=== PATIENT | female | born 1980 | race American Indian/Alaskan Native ===

== ENCOUNTER 2017-07-25 10:00 | Inpatient (IN) | payer OTHER ==
[2017-07-26] MEDS ORDERED: SUBLIMAZE IV SCH (11:02)
--- NOTE | 2017-07-26 11:02 | Anesthesia Consultation ---
Anesthesia Consult and Med Hx Date of service: 07/26/17 - Airway Anesthetic Teeth Evaluation: Good, Crowns (left lower molar) ROM Head & Neck: Adequate Mental/Hyoid Distance: Adequate Mallampati Class: Class I Intubation Access Assessment: Probably Good - Pulmonary Exam CTA: Yes - Cardiac Exam Cardiac Exam: RRR - Pre-Operative Health Status ASA Pre-Surgery Classification: ASA1 Proposed Anesthetic Plan: General - Pulmonary Hx Smoking: No - Cardiovascular System Hx Hypertension: No - Central Nervous System Hx Psychiatric Problems: No - Hematic Hx Anemia: Yes - Other Systems Hx Alcohol Use: Yes (occas) Hx Substance Use: No Hx Cancer: No - Additional Comments Anesthesia Medical History Comments: Patient indicates that she has a tendency towards nausea. We discussed the possibility of a TAP block.
[2017-07-26 11:03] LABS: Hematocrit 27.6 % (30.3-42.9); Hemoglobin 8.3 gm/dl (10.1-14.3); Mean Corpuscular HGB Conc 30 % (30-34); Platelet Count 283 K/mm3 (140-440); Red Blood Count 4.39 M/mm3 (3.65-5.03)
[2017-07-26 11:05] LABS: Mean Corpuscular Hemoglobin 19 pg (28-32); Mean Corpuscular Volume 63 fl (79-97); Red Cell Distribution Width 23.2 % (13.2-15.2)
[2017-07-26 11:07] LABS: BUN/Creatinine Ratio 28; Blood Urea Nitrogen 14 mg/dL (7-17); Calcium 8.6 mg/dL (8.4-10.2); Hemolysis Index 3
[2017-07-26] MEDS ORDERED: XYLOCAINE 1% 20 mL INFILTRATI NR (11:15)
[2017-07-26] MEDS ORDERED: PEPCID IV NR (12:00)
[2017-07-26] MEDS ORDERED: NACL P/F VIAL (10 ML) INFILTRATI NR (12:00)
[2017-07-26] MEDS ORDERED: TRANSDERM-SCOP TD NR (12:00)
[2017-07-26] MEDS ORDERED: MARCAINE 0.5% INFILTRATI NR (12:00)
--- NOTE | 2017-07-26 17:17 | History and Physical Report ---
History of Present Illness Date of examination: 07/26/17 Chief complaint: dysfunctional uterine bleeding, fibroid uterus, anemia History of present illness: Pt is a 36 year old nulligravida who presents with fibroid uterus, dysfunctional uterine bleeding and chronic anemia. She desires surgical management and preservation of fertility. Past History Past Medical History: no pertinent history Past Surgical History: no surgical history GUEST SERVICES DIRECTOR History: fibroids, herpes Family/Genetic History: diabetes, hypertension, cancer Social history: no significant social history Medications and Allergies Allergies Allergy/AdvReac Type Severity Reaction Status Date / Time No Known Allergies Allergy Unverified 07/20/17 12:48 Home Medications Medication Instructions Recorded Confirmed Last Taken Type Multivitamin Tab [Multiple Vitamin 1 each PO QDAY 07/20/17 07/20/17 Unknown History TAB (Theragran)] Active Meds: Active Medications Bupivacaine HCl (Marcaine 0.5%) 20 ml INFILTRATI PREOP NR Stop: 07/27/17 23:59 Famotidine (Pepcid) 20 mg IV PREOP NR Stop: 07/27/17 23:59 Fentanyl (Sublimaze) 100 mcg IV ONCE FELICIA Stop: 07/27/17 23:00 Lactated Ringer's (Lactated Ringers) 1,000 mls @ 42 mls/hr IV DIRECT FELICIA Sodium Chloride (Nacl 0.9% 500 Ml) 500 mls @ 0 mls/hr IV ONCE ONE Stop: 07/27/17 07:01 Cefazolin Sodium (Ancef/Sterile Water 2 Gm/20 Ml) 2 gm in 20 mls @ 80 mls/hr IV PREOP FELICIA; Protocol Lidocaine (Xylocaine 1% 20 Ml) 10 ml INFILTRATI PREOP NR Stop: 07/27/17 23:00 Ondansetron HCl (Zofran) 4 mg IV PREOP NR Stop: 07/27/17 23:00 Scopolamine (Transderm-Scop) 1 each TD PREOP NR Stop: 07/27/17 23:59 Sodium Chloride (Nacl P/F Vial (10 Ml)) 1 ml INFILTRATI PREOP NR Stop: 07/27/17 23:59 Review of Systems All systems: negative - Vital Signs Vital signs: Vital Signs Temp Pulse Resp BP 98.7 F 60 16 108/68 07/26/17 10:25 07/26/17 10:25 07/26/17 10:25 07/26/17 10:25 Temp Pulse Resp BP Pulse Ox 98.7 F 60 16 108/68 07/26/17 10:25 07/26/17 10:25 07/26/17 10:25 07/26/17 10:25 - Physical Exam Breasts: Positive: deferred Cardiovascular: Regular rate Lungs: Positive: Clear to auscultation Abdomen: Positive: soft. Negative: tenderness Uterus: Positive: enlarged Results Result Diagrams: 07/26/17 10:35 07/26/17 10:35 Abnormal lab results 07/26/17 07/26/17 Range/Units 10:35 10:35 Hgb 8.3 L (10.1-14.3) gm/dl Hct 27.6 L (30.3-42.9) % MCV 63 L (79-97) fl MCH 19 L (28-32) pg RDW 23.2 H (13.2-15.2) % Creatinine 0.5 L (0.7-1.2) mg/dL All other labs normal. Ultrasound: other (02/22/17: Uterus 12.8x9.4x10.0 cm. Multiple fibroids. Anterior aapect: 4.1, 4.5 cm. Posterior 3.4, 2.7 cm. Endometrium distorted. ) Assessment and Plan A: Dysfunctional Uterine Bleeding Fibroid Uterus Chronic Anemia P: Type and Cross 2 units of PRBCs Cell Saver Proceed with abdominal myomectomy and other indicated procedures.
[2017-07-27] MEDS ORDERED: ANCEF/STERILE WATER 2 GM/20 ML 2 GM/20 ML SYRINGE IV SCH (05:00)
[2017-07-27] MEDS ORDERED: NACL BACTERIOSTATIC INFILTRATI ONE (06:23)
[2017-07-27] MEDS: LACTATED RINGERS 1,000 ML IV SCH (06:53)
[2017-07-27] MEDS: ZOFRAN IV NR ×2 (06:57→10:53)
[2017-07-27] MEDS ORDERED: NACL 0.9% 500 ML 500 ML IV SCH (07:00)
[2017-07-27] MEDS ORDERED: VERSED ONE ×2 (07:10→07:40)
[2017-07-27] MEDS ORDERED: ACD-A 500 ML IV ONE (07:17)
[2017-07-27] MEDS ORDERED: ZEMURON IV ONE ×2 (07:17→09:16)
[2017-07-27] MEDS ORDERED: DIPRIVAN 10 MG/ML IV ONE (07:17)
[2017-07-27] MEDS ORDERED: Vasostrict ONE (07:17)
[2017-07-27] MEDS ORDERED: SUBLIMAZE ONE (07:17)
[2017-07-27] MEDS ORDERED: NACL 0.9% 100 ML ONE (07:17)
[2017-07-27] MEDS ORDERED: REGLAN ONE (07:17)
[2017-07-27] MEDS ORDERED: ZOFRAN ONE (07:17)
[2017-07-27] MEDS ORDERED: NACL 0.9% 500 ML 500 ML IV NR (07:36)
--- NOTE | 2017-07-27 07:38 | Anesthesia Day of Surgery ---
Anesthesia Day of Surgery - Day of Surgery Patient Examined: Yes Patient H&P Reviewed: Yes Patient is NPO: Yes
[2017-07-27] MEDS ORDERED: LACTATED RINGERS 1,000 ML ONE ×2 (08:21→09:10)
[2017-07-27] MEDS ORDERED: NEOSTIGMINE ONE (09:09)
[2017-07-27] MEDS ORDERED: ROBINUL ONE (09:09)
[2017-07-27] MEDS ORDERED: ACD-A IV ONE (10:10)
[2017-07-27] MEDS ORDERED: NACL 0.9% IR ONE (10:11)
[2017-07-27] MEDS ORDERED: NACL 0.9% IV ONE (10:11)
[2017-07-27] MEDS ORDERED: Vasostrict IM ONE (10:11)
[2017-07-27] MEDS ORDERED: DILAUDID ONE ×2 (10:13→10:36)
[2017-07-27] MEDS: DILAUDID IV PRN ×3 (10:35→20:25)
[2017-07-27] MEDS ORDERED: TORADOL ONE (10:41)
[2017-07-27] MEDS: TORADOL IV PRN ×2 (10:42→17:05)
--- NOTE | 2017-07-27 10:45 | Post Operative Note ---
Pre-op diagnosis: 1) Dysfunctional Uterine Bleeding 2) Fibroid Uterus 3) Anemia Post-op diagnosis: same Findings: 1) 16-18 w sized uterus with multiple pedunculated, subserosal, intramural and submucosal fibroids 2) Normal appearing ovaries and fallopian tubes Procedure: Abdominal Myomectomy Anesthesia: GETA Surgeon: DUARTE SALMON Cement Despatch Operator: KIRILL SCHNEIDER Estimated blood loss: other (700 mL) Pathology: list (fibroids) Specimen disposition: to lab Condition: stable Disposition: PACU
--- NOTE | 2017-07-27 10:45 | Operative Report ---
Operative Report Operative Report: Date of procedure: July 27, 2017 Preoperative diagnosis: 1) Dysfunctional Uterine Bleeding 2) Fibroid Uterus 3) Desires fertility 4) Anemia Postoperative diagnosis: same Procedure: Abdominal myomectomy Surgeon: Cortney Smith MD Craniologist: Susana Avalos MD Anesthesia: General endotracheal anesthesia Findings: 1) 16-18 w sized uterus with multiple pedunculated, subserosal, intramural and submucosal fibroids 2) Normal appearing ovaries and fallopian tubes 3) Endometrial cavity was entered during the procedure EBL: 700 mL Cell Saver: 200 mL IVF: 2800 mL Urine output: 150 mL, clear at the end of the procedure Specimens: Twenty eight fibroids to pathology Drains: johnson to gravity Complications: None. Counts correct x 2. Disposition: stable to PACU Indication: Pt is a 36 year old nulligravida who presents with fibroid uterus, dysfunctional uterine bleeding and chronic anemia. She desires surgical management and preservation of fertility. Operation in detail: After the risks, benefits, alternatives and complications of the procedure were explained to the patient, she gave informed consent for the procedure. She was subsequently taken to the operating room with her IV noted to be running well and placed in the dorsal supine position. SCDs were noted to be in place and functioning. General anesthesia was induced without difficulty. An exam under anesthesia revealed a 16-18 wk sized uterus. The patient was subsequently prepped and draped in a normal fashion and a johnson catheter was placed. A time out was performed. A Pfanenstiel skin incision was made with knife and carried down to the fascia with the Bovie. The fascia was incised in the midline with the Bovie, and the incision was extended bilaterally. Attention was then turned to the superior aspect of the fascial incision which was grasped with two Kochers, tented up and dissected off the rectus muscles. Attention was then turned to the inferior aspect of the incision which was grasped with two Kochers, tented up, and dissected off the rectus muscles. The peritoneum was entered sharply between Geraldine clamps and the peritoneal incision was extended superiorly and inferiorly with the Bovie. The peritoneal incision was then stretched. At this time the uterus was grasped with a Elver clamp, and delivered through the incision. Multiple subserosal and intramural fibroids were palpated. Multiple incisions were made to access the uterine fibroids on both on the anterior and posterior surfaces of the uterus. The planned incision tracks were infiltrated with a dilute Pitressin solution prior to incision. Once each fibroid was identified, it was grasped with a Elver clamp and a combination of dissection with the Bovie and Cabrera scissors were used to excise the fibroids. The endometrial cavity was entered during the dissection. The remaining defects were closed with multiple layers of running stitches of 2-0 and 0-Vicryl. The incisions were observed and additional [id number] stitches of 0-Vircyl were used to achieve hemostasis. The incisions were then covered with Patrice AH. Intercede was then placed over the anterior surfaces of the uterus and the fundus. The peritoneal cavity was then irrigated. The uterus was returned to the peritoneal cavity. The peritoneum and rectus muscles were then reapproximated in a single layer with 2-0 Vicryl in a running fashion. The fascial incision was reapproximated with 0-Vicryl in a running fashion. The subcutaneous tissue was reapproximated with 0-Vicryl in a running fashion. The skin was reapproximated with 4-0 Vicryl in a subcuticular fashion. The incision was then covered with Steri-Strips and a pressure dressing. The procedure was then ended. The patient was extubated without difficulty and taken to the PACU in stable condition. All instrument, lap and needle counts were correct x 2. This pt has been counseled that she should be delivered via section should she become .
[2017-07-27] MEDS ORDERED: NARCAN 0.4 MG/1 ML IV PRN ×2 (11:15)
[2017-07-27] MEDS ORDERED: DULCOLAX PR PRN (11:15)
[2017-07-27] MEDS ORDERED: MILK OF MAGNESIA PO PRN (11:15)
[2017-07-27] MEDS ORDERED: ANCEF/NS 1 GM/50 ML 1 GM/50 ML BAG IV SCH (12:00)
[2017-07-27] MEDS: ceFAZolin 1 GM in NACL 0.9% 20 ML IV SCH (18:00)
[2017-07-27] MEDS: TORADOL IV SCH (23:57)
[2017-07-28] MEDS: LACTATED RINGERS 1,000 ML IV SCH (02:13)
[2017-07-28] MEDS: ceFAZolin 1 GM in NACL 0.9% 20 ML IV SCH (02:16)
[2017-07-28 05:47] LABS: Hematocrit 18.6 % (30.3-42.9); Hemoglobin 5.7 gm/dl (10.1-14.3)
[2017-07-28 05:58] LABS: BUN/Creatinine Ratio 12; Blood Urea Nitrogen 7 mg/dL (7-17); Calcium 7.9 mg/dL (8.4-10.2); Hemolysis Index 0
[2017-07-28] MEDS: TORADOL IV SCH (06:02)
[2017-07-28] MEDS ORDERED: BENADRYL PO ONE (08:30)
[2017-07-28] MEDS ORDERED: TYLENOL PO ONE (08:30)
--- NOTE | 2017-07-28 09:06 | Progress Note ---
Assessment and Plan A: POD#1 s/p abdominal myomectomy Symptomatic anemia P: Transfuse 2 units PRBCs H/H 4 hours after last unit Closely monitor clinical status Subjective - Subjective Date of service: 07/28/17 Principal diagnosis: s/p abdominal myomectomy Interval history: Pt dizzy with ambulation this morning. Patient reports: dizzy ambulation, pain well controlled, no voiding normally ( johnson in place ), no flatus, no bowel movement Objective - Vital Signs Latest vital signs: Vital Signs Temp Pulse Resp BP BP Pulse Ox 07/28/17 08:57 98.0 F 108 H 20 95/53 07/28/17 08:42 99.3 F 110 H 20 88/49 100 07/28/17 08:11 20 07/28/17 03:30 98.7 F 77 16 104/67 07/28/17 00:00 99.8 F H 81 16 103/69 07/27/17 19:30 99.1 F 66 16 99/63 07/27/17 16:53 97.7 F 94 H 18 98/62 100 07/27/17 11:50 97.9 F 69 15 102/50 99 07/27/17 10:55 65 10 L 107/51 100 07/27/17 10:50 70 10 L 99/46 100 07/27/17 10:45 67 18 103/51 100 07/27/17 10:40 69 15 95/40 100 07/27/17 10:32 97.9 F 83 18 99/40 100 Intake and Output 07/27/17 07/28/17 07/28/17 22:59 06:59 14:59 Intake Total 240 812 250 Output Total 300 2200 Balance -60 -1388 250 Intake: IV 812 Lactated Ringers 1,000 ml 812 @ 42 mls/hr IV DIRECT FELICIA Rx#:[id number] Oral 240 Blood Product 250 Leukoreduced Red Blood 250 Cells Unit [id number] Output: Urine 300 2200 Indwelling Catheter 300 2200 Other: Total, Intake Amount 240 Total, Output Amount 300 600 Voiding Method Indwelling Catheter - Exam Breasts: Present: deferred Cardiovascular: Present: Regular rate Lungs: Present: Clear to auscultation Abdomen: Present: soft Extremities: Present: normal Incision: Present: dressed - Labs Labs: Abnormal lab results 07/27/17 07/28/17 07/28/17 Range/Units 06:50 05:03 05:03 Hgb 5.7 L* (10.1-14.3) gm/dl Hct 18.6 L* D (30.3-42.9) % Creatinine 0.6 L (0.7-1.2) mg/dL Calcium 7.9 L (8.4-10.2) mg/dL Crossmatch See Detail
[2017-07-28] MEDS ORDERED: MOTRIN PO PRN (10:30)
[2017-07-28] MEDS ORDERED: PERCOCET 5/325 PO PRN (10:30)
[2017-07-28 17:48] LABS: Hematocrit 25.1 % (30.3-42.9); Hemoglobin 7.9 gm/dl (10.1-14.3)
[2017-07-28] MEDS ORDERED: ZOFRAN IV ONE (17:52)
[2017-07-29] MEDS: TORADOL IV SCH (01:44)
--- NOTE | 2017-07-29 17:00 | Progress Note ---
Assessment and Plan A: POD#2 s/p abdominal myomectomy Symptomatic anemia s/p 2 units of PRBCs P: Discharge home today with follow up in two weeks for incision check. Subjective - Subjective Date of service: 07/29/17 Principal diagnosis: s/p abdominal myomectomy Interval history: Pt feels much better after transfusion. She would like to go home. Patient reports: appetite normal, voiding normally, pain well controlled, flatus , ambulating normally, no bowel movement, no nauseated Objective - Vital Signs Latest vital signs: Vital Signs Temp Pulse Resp BP BP Pulse Ox 07/29/17 07:46 98.6 F 70 18 98/55 98 07/29/17 04:10 98.6 F 80 16 102/68 07/29/17 00:27 18 07/29/17 00:00 98.9 F 83 16 105/71 07/28/17 20:00 99.1 F 81 16 99/67 07/28/17 18:00 20 07/28/17 17:00 99.0 F 87 20 100/54 100 Intake and Output 07/29/17 07/29/17 07/29/17 06:59 14:59 22:59 Intake Total 300 240 Balance 300 240 Intake: Oral 240 Intake, Free Water 300 Other: Total, Intake Amount 240 - Exam Breasts: Present: deferred Cardiovascular: Present: Regular rate Lungs: Present: Clear to auscultation Abdomen: Present: soft, normal bowel sounds Extremities: Present: normal Incision: Present: intact - Labs Labs: Abnormal lab results 07/28/17 Range/Units 17:18 Hgb 7.9 L (10.1-14.3) gm/dl Hct 25.1 L D (30.3-42.9) %
--- NOTE | 2017-07-29 17:04 | Discharge Summary ---
Providers - Providers Date of Admission: 07/27/17 05:55 Date of discharge: 07/29/17 Attending physician: DUARTE SALMON Primary care physician: ILAN GOMEZ Hospitalization Reason for admission: other (Myomectomy ) Procedure details: Please see procedure note. Episiotomy: none Laceration: none Incision: normal, intact complications: none Hospital course: Pt was admitted for myomectomy which she tolerated well. She then developed acute on chronic anemia requiring transfusion of 2 units PRBCs. The remainder of her hospital course was uncomplicated and she met discharge criteria on POD# 2. Condition at discharge: Stable Disposition: DC-[id number] TO HOME OR SELFCARE - Discharge Diagnoses (1) Dysfunctional uterine bleeding Status: Acute (2) Fibroid uterus Status: Acute (3) Chronic blood loss anemia Status: Acute (4) Acute blood loss as cause of postoperative anemia Status: Acute Plan - Discharge Medications Prescriptions: Docusate Sodium [Colace] 100 mg PO BID PRN #60 capsule PRN Reason: Constipation Ferrous Sulfate 325 mg PO BID #60 tablet.dr Ibuprofen [Motrin] 800 mg PO Q8HR PRN #30 tablet PRN Reason: Pain Ondansetron [Zofran Odt] 4 mg PO Q12H PRN #30 tab.rapdis PRN Reason: Nausea oxyCODONE /ACETAMINOPHEN [Percocet 5/325] 1 tab PO Q6HR PRN #40 tablet PRN Reason: Pain - Provider Discharge Summary Activity: routine, no sex for 6 weeks, no heavy lifting 4 weeks, no strenuous exercise Diet: routine Instructions: routine Additional instructions: [] Smoking cessation referral if applicable(refer to patient education folder for contact #) [] Refer to [facility] Booklet Call your doctor immediately for: * Fever > 100.5 * Heavy vaginal bleeding ( >1 pad per hour) * Severe persistent headache * Shortness of breath * Reddened, hot, painful area to leg or breast * Drainage or odor from incision. * Keep incision clean and dry at all times and follow doctor's instructions regarding bathing/showering - Follow up plan Follow up: ILAN GOMEZ MD [Primary Care Provider] - 7 Days DUARTE SALMON MD [Staff Physician] - 08/10/17 (incision check - please call to schedule appt)
[2017-07-29 18:15] VITALS: BP 98/53
== END 2017-07-29 17:50 | disposition home or self-care (01) | DRG 742 ==
LOC: 3A 07-27 05:55 → OB 07-27 11:21
PROVIDERS: ADMIT Obstetrics & Gynecology; ATTEND Obstetrics & Gynecology
PROC: 0UB90ZZ Excision of Uterus, Open Approach (ICD-10-PCS; principal; 2017-07-27)
PROC: 30233N1 Transfusion of Nonautologous Red Blood Cells into Peripheral Vein, Percutaneous Approach (ICD-10-PCS; 2017-07-27)
DX: D25.1 Intramural leiomyoma of uterus (principal); D62 Acute posthemorrhagic anemia; D25.0 Submucous leiomyoma of uterus; D25.2 Subserosal leiomyoma of uterus; N93.8 Other specified abnormal uterine and vaginal bleeding; Z82.49 Family history of ischemic heart disease and other diseases of the circulatory system; Z83.3 Family history of diabetes mellitus; Z80.9 Family history of malignant neoplasm, unspecified; D64.9 Anemia, unspecified
CPT/HCPCS: 36415; 64450; 80048; 84703; 85014; 85018; 85025; 86850; 86900; 86901; 86920; 88305; C1765; J0690; J1170; J1885; J2250; J2405; J2704; J2710; J2765; J3010; J7040; J7120; P9016